=== PATIENT | female | born 1945 | race Two or more races ===

== ENCOUNTER 2018-10-08 15:21 | Outpatient (CLI) | payer OTHER ==
[~2018-10-08 15:21] MED LIST: ASPIR 8181 MG; ATENOLOL25 MG PO; CITALOPRAM10 MG/5 ML; COZAAR25 MG; INTEGRA PLUS C1 EACH PO; LIPITOR20 MG; LIPITOR20 MG PO; LOSARTAN-HCTZ1 EACH PO; PLACEBO #001 EACH; SYNTHROID50 MCG; TENORMIN25 MG
== END 2018-10-08 15:25 | disposition home or self-care (01) ==
LOC: RAD 501 15:21
DX: M54.2 Cervicalgia (principal)

== ENCOUNTER 2019-08-28 11:38 | Outpatient (CLI) | payer OTHER | END 2019-08-28 11:53 | disposition home or self-care (01) | LOC: SONOGRAMA 11:38 | DX: N28.1 Cyst of kidney, acquired (principal) ==